=== PATIENT | male | born 1955 | race Caucasian/White ===

== ENCOUNTER 2020-10-03 07:15 | Day surgery (SDC) | payer BC ==
[~2020-10-03] VITALS: Ht 167.6 cm; Wt 89.5 kg
[~2020-10-03 07:15] MED LIST: COLCRYS0.6 MG PO; COZAAR50 MG PO; HYDROCHLOROTH12.5 M1 PO; LOSARTAN-HCTZ1 EACH PO; NEXIUM40 MG PO; RANITIDINE HCL150 MG PO; VENTOLIN HFA18 GM INH
--- NOTE | 2020-10-05 12:52 | PATH ---
[facility] [address] [place], [place] [address] Signed SPECIMEN(S): A COLON POLYP AT 40 CM SPECIMEN SOURCE: A. COLON POLYP AT 40 CM CLINICAL HISTORY: History tubular adenoma 2017. Post op: Diverticulosis, polyp x 1. Colonoscopy. MICROSCOPIC DESCRIPTION: Histologic sections of all submitted blocks are examined by light microscopy. These findings, together with the gross examination, support the pathologic diagnosis. FINAL PATHOLOGIC DIAGNOSIS: Colon, polyp at 40 cm, polypectomy: - Fragments of tubular adenoma. - Negative for high-grade dysplasia or malignancy. NAL:cml:C2NR GROSS DESCRIPTION: The specimen, labeled "Pietro Sanabria, #1," and designated on the requisition "colon polyp at 40 cm," is received in formalin and consists of four moreno soft tissue fragments that measure 0.2-0.3 cm in greatest dimension. The specimen is entirely submitted in cassette (A1). FB (under the direct supervision of a pathologist) The Gross Description was prepared using a voice recognition system. The report was reviewed for accuracy; however, sound-alike word errors, addition and/or deletions may occur. If there is any question about this report, please contact Client Services. PERFORMING LABORATORY: The technical component was performed by [facility], [address] [place] [id number] (Polygraph Technician: Meli Sharma MD; CLIA# [id number]). [facility], [address] [address] (CLIA# [id number]). Diagnostician: Mami Quinteros MD Pathologist Electronically Signed 10/05/2020 PATIENT NAME: PIETRO SANABRIA PATHOLOGY DATE OF : 57 REPORT #: [id number] PHYSICIAN: ARACELIYTE PATHOLOGY PCP: NESTOR SHAW MD REPORT IS CONFIDENTIAL AND NOT TO BE RELEASED WITHOUT AUTHORIZATION [facility] [address], [place] [address] Signed Copies: ~ PATIENT NAME: PIETRO SANABRIA PATHOLOGY DATE OF : 57 REPORT #: [id number] PHYSICIAN: INCYTE PATHOLOGY PCP: NESTOR SHAW MD REPORT IS CONFIDENTIAL AND NOT TO BE RELEASED WITHOUT AUTHORIZATION
--- NOTE | 2020-10-05 13:30 | OR ---
[facility] [address] [place], [place] [address] Signed DATE OF OPERATION: 10/03/2020 SURGEON: Elsi Motley MD PREOPERATIVE DIAGNOSIS: History of colon polyp (tubular adenoma 2017). POSTOPERATIVE DIAGNOSES: 1. Extensive sigmoid and left-sided diverticulosis. 2. Small polyp at 50 cm. PROCEDURE: Total colonoscopy to cecum with cold morcellation polypectomy x1. ANESTHESIA: Intravenous sedation, fentanyl 100 mcg and Versed 5 mg. INDICATIONS: This 64-year-old white man is a patient of Dr. Newman known to me from the past. He underwent colonoscopy in 2017, which showed a tubular adenoma, which was excised. He has no symptoms of bleeding, diarrhea, or constipation. He is here for surveillance colonoscopy. He understands the risks of bleeding, infection, and perforation related to colonoscopy and wished to proceed. FINDINGS: Extensive diverticular changes noted in the sigmoid and left colon, but no associated stenosis or other problem. Complete colonoscopy was undertaken of the cecum without question. He did have what appeared to be a small flat polyp at 50 cm, this was excised with cold morcellation technique. Narrow band imaging confirmed the probability this represents adenoma though it is not certain. DESCRIPTION OF PROCEDURE: The patient was brought to the endoscopy suite and placed in lateral decubitus position, given intravenous sedation to the point of slurred speech and nystagmus. Digital rectal examination was normal. An Olympus video colonoscope was passed in the rectum and manipulated throughout the colon noting diverticular change of the sigmoid and left colon. The scope was ultimately passed to the cecum. Ileocecal valve was normal. Cecum fully intubated and normal as well. The scope was withdrawn and examination throughout showed no sign of Electronically Signed By: ELSI MOTLEY MD 10/05/20 1330 PATIENT NAME: TRACE KIMBALL OPERATIVE REPORT DATE OF : 57 REPORT #: [id number] PHYSICIAN: ELSI MOTLEY MD PCP: NESTOR NEWMAN MD REPORT IS CONFIDENTIAL AND NOT TO BE RELEASED WITHOUT AUTHORIZATION [facility] [address] [place], [place] [address] Signed abnormality until the proximal descending colon, but once again diverticular changes were noted. At approximately 50 cm, there was a small flat appearing polyp. Narrow band imaging confirmed this to likely be adenomatous. On that basis, multiple biopsies and excision was undertaken. The scope was then withdrawn further and numerous diverticula were seen. Retroflexed view of the rectum was normal. The scope was removed and the patient was taken to the recovery room in good condition. CONCLUDING DIAGNOSIS: 1. Diverticular disease of sigmoid and left colon. 2. Small polyp at 50 cm excised. PLAN: Recommend a repeat colonoscopy in 5 years sooner if clinically indicated. He will return to the ongoing care of Dr. Newman otherwise. MD IRENE Galloway/ERIC /[id number] cc: Nestor Newman MD Copies: NESTOR NEWMAN MD ~ Electronically Signed By: ELSI MOTLEY MD 10/05/20 1330 PATIENT NAME: TRACE KIMBALL ANT OPERATIVE REPORT DATE OF : 57 REPORT #: [id number] PHYSICIAN: ELSI MOTLEY MD PCP: NESTOR NEWMAN MD REPORT IS CONFIDENTIAL AND NOT TO BE RELEASED WITHOUT AUTHORIZATION
== END 2020-10-03 10:00 | disposition home or self-care (01) ==
LOC: DS 07:15 → OPS 07:15 → DS 08:30 → OPS 10:00 → DS 11-03 08:30
PROVIDERS: ATTEND Surgery
PROC: 0DBM8ZX Excision of Descending Colon, Via Natural or Artificial Opening Endoscopic, Diagnostic (ICD-10-PCS; principal; 2020-10-03 08:30)
DX: Z12.11 Encounter for screening for malignant neoplasm of colon (principal); D12.4 Benign neoplasm of descending colon; K57.30 Diverticulosis of large intestine without perforation or abscess without bleeding; I10 Essential (primary) hypertension; K21.9 Gastro-esophageal reflux disease without esophagitis; G47.30 Sleep apnea, unspecified; N40.1 Benign prostatic hyperplasia with lower urinary tract symptoms; F17.220 Nicotine dependence, chewing tobacco, uncomplicated; Z79.899 Other long term (current) drug therapy; Z86.010 Personal history of colon polyps
CPT/HCPCS: 99153; G0500; J2250; J3010; J7121

== ENCOUNTER 2021-07-11 14:23 | Emergency (ER) | payer BC ==
[~2021-07-11] VITALS: Ht 167.6 cm; Wt 89.4 kg
--- OUTSIDE RECORDS SUMMARY | 2021-07-11 14:30 | XMS ---
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 [facility] VISIT COUNT (12 MO.) [address] [place] [address] TOTAL 2 NOTE: Visits indicate total known visits. ED/UCC VISIT TRACKING (12 MO.) 07/11/2021 14:24 [facility] [place] TYPE: Emergency COMPLAINT: - FLU SYMPTOMS 07/10/2021 10:47 [facility] [place] TYPE: Emergency DIAGNOSES: - Contact with and (suspected) exposure to covid-19 - COVID+ SHORTNESS OF BREATH FEVER INPATIENT VISIT TRACKING (12 MO.) No inpatient visits to display in this time frame [email or web address]
== END 2021-07-11 18:40 | disposition home or self-care (01) ==
LOC: ED 14:23
DX: U07.1 COVID-19 (principal); I10 Essential (primary) hypertension; Z79.899 Other long term (current) drug therapy
CPT/HCPCS: 99283-25; A9270; M0243; Q0244